=== PATIENT | female | born 1980 | race Caucasian/White ===

== ENCOUNTER 2018-01-10 12:54 | Emergency (ER) | payer OTHER ==
[2018-01-10] MEDS: HYDROCODONE/APAP (5/325) TAB PO (13:40)
[2018-01-10] MEDS: CEFTRIAXONE 1 GM INJ IM (13:51)
[2018-01-10] MEDS: LIDOCAINE 1% (MDV) 10 ML INJ INFIL (13:51)
== END 2018-01-10 14:23 | disposition home or self-care (01) ==
LOC: FTE 12:54
DX: J32.9 Chronic sinusitis, unspecified (principal); K04.7 Periapical abscess without sinus
CPT/HCPCS: 96372; 99284-25